=== PATIENT | male | born 1995 | race African-American/Black ===

== ENCOUNTER 2021-03-10 13:06 | Emergency (ER) | payer SELFPAY ==
[~2021-03-10] VITALS: Ht 182.9 cm; Wt 79.0 kg
[2021-03-10 14:03] VITALS: BP 125/57
== END 2021-03-10 14:42 | disposition left against medical advice (07) ==
LOC: ER 13:06
DX: R10.13 Epigastric pain (principal); F12.10 Cannabis abuse, uncomplicated
CPT/HCPCS: 93005; 99283